=== PATIENT | female | born 1990 | race Caucasian/White ===

== ENCOUNTER 2016-12-17 15:14 | Emergency (ER) | payer MEDICAID ==
[2016-12-17 18:21] VITALS: BP 117/88
== END 2016-12-17 18:21 | disposition home or self-care (01) ==
LOC: ED 15:14
DX: K02.9 Dental caries, unspecified (principal); K04.7 Periapical abscess without sinus

== ENCOUNTER 2017-11-16 08:23 | Emergency (ER) | payer MEDICAID ==
[~2017-11-16] VITALS: Ht 154.9 cm; Wt 78.9 kg
[2017-11-16 08:41] VITALS: Ht 154.9 cm; Wt 78.9 kg
[2017-11-16 09:40] LABS: BASOPHIL % 0.3 % (0-2); PLATELET COUNT 262 x10^3mcL (130-400)
[2017-11-16 09:47] LABS: CHLORIDE SERUM 105 mmol/L (98-107); CREATININE SERUM 0.8 mg/dL (0.6-1.0); GFR1 > 60 mL/min; GLUCOSE SERUM 97 mg/dL (74-106); POTASSIUM SERUM 4.1 mmol/L (3.5-5.1); SODIUM SERUM 143 mmol/L (136-145)
[2017-11-16 09:51] LABS: ALKALINE PHOSPHATASE 86 U/L (46-116); ALT/SGPT 31 U/L (14-59); AST/SGOT 16 U/L (15-37); BILIRUBIN TOTAL 0.51 mg/dL (0.20-1.00); LIPASE 102 IU/L (73-393)
[2017-11-16 09:54] LABS: AMYLASE 134 U/L (25-115)
[2017-11-16 10:27] VITALS: BP 136/87
== END 2017-11-16 10:27 | disposition home or self-care (01) ==
LOC: ED 08:23
PROVIDERS: Emergency Medicine
DX: R10.13 Epigastric pain (principal); R11.2 Nausea with vomiting, unspecified
CPT/HCPCS: J1885